=== PATIENT | female | born 1970 | race Caucasian/White ===

== ENCOUNTER 2016-09-09 20:21 | Emergency (ER) | payer MEDICAID ==
[2016-09-09] MEDS ORDERED: Ketorolac 60 MG/2 ML SDV IVPUSH ONE (21:23)
[2016-09-09] MEDS ORDERED: Tamsulosin 0.4 MG Cap.ER PO ONE (21:25)
[2016-09-09] MEDS ORDERED: Sodium Chloride 0.9% 1,000 ML IV SCH (21:30)
[2016-09-09 22:51] VITALS: BP 150/90
--- NOTE | 2016-09-09 22:55 | EDM.PDOC ---
ED HPI RENAL/ - General Chief Complaint: Flank Pain Stated Complaint: LEFT FLANK PAIN Time Seen by Provider: 09/09/16 20:56 Source: Reports: Patient History Limitations: Reports: No limitations - History of Present Illness INITIAL COMMENTS - FREE TEXT/NARRATIVE: History of present illness: [This 45-year-old female presenting with the sudden onset of left flank pain radiating into her groin. She has a prior history of a kidney stone and states this feels like the same thing. That stone had to be stented. She's had no fevers or chills or burning on urination. Some nausea no vomiting.] Review of systems: As per history of present illness and below otherwise all systems reviewed and negative. Past medical history: As per history of present illness and as reviewed below otherwise noncontributory. Surgical history: As per history of present illness and as reviewed below otherwise noncontributory. Social history: No reported history of drug or alcohol abuse. Family history: As per history of present illness and as reviewed below otherwise noncontributory. Physical exam: HEENT: Atraumatic, normocephalic, pupils reactive, negative for conjunctival pallor or scleral icterus, mucous membranes moist, throat clear, neck supple, nontender, trachea midline. Lungs: Clear to auscultation, breath sounds equal bilaterally Heart: S1S2, regular Abdomen: She has some tenderness to palpation of the left flank area bowel sounds are active Pelvis: Stable nontender. Genitourinary: Deferred. Rectal: Deferred. Extremities: Atraumatic, negative for cords or calf pain. Neurovascular unremarkable. Neuro: Awake, alert, oriented. Exam nonfocal. Diagnostics: [Abdominal pelvic CT shows a 6 mm stone at the level of the pelvic brim] Therapeutics: [She's received IV fluids and Toradol and Flomax] Impression: [Nephrolithiasis] Plan: [She will call [facility] in [place] and let them know of the fact that she has another kidney stone and get direction from them as to if they want to see her or not. And if so when. We'll provide her with pain medications in the form of Percocet and equipment for straining her urine and Flomax] Definitive disposition and diagnosis as appropriate pending reevaluation and review of above. - Related Data Allergies/ADRs: Allergies Allergy/AdvReac Type Severity Reaction Status Date / Time No Known Allergies Allergy Verified 09/09/16 21:00 Home Meds: Home Meds Lisinopril [Lisinopril] 1 tab PO DAILY 09/09/16 [History] Past Medical History Cardiovascular History: Reports: Hypertension Genitourinary History: Reports: Renal calculus [employer] History: Reports: - Past Surgical History Female Surgical History: Reports: Breast implant, Ureteral stent Social & Family History - Tobacco Use Smoking Status *Q: Light Tobacco Smoker Years of Tobacco use: 20 Packs/Tins Daily: 0.5 Used Tobacco, but Quit: No Month Tobacco Last Used: september Second Hand Smoke Exposure: No - Alcohol Use Days Per Week of Alcohol Use: 0 - Recreational Drug Use Recreational Drug Use: No ED ROS GENERAL - Review of Systems Review Of Systems: ROS reveals no pertinent complaints other than HPI. ED EXAM, RENAL/ - Physical Exam Exam: See Below Course - Vital Signs Last Recorded V/S: Last Vital Signs Temp 36.2 C 09/09/16 21:08 Pulse 89 09/09/16 21:08 Resp 18 09/09/16 21:08 BP 156/96 H 09/09/16 21:08 Pulse Ox 98 09/09/16 21:08 - Orders/Labs/Meds Orders: Active Orders 24 hr Category Date Time Status Abdomen Pelvis wo Cont [CT] Stat Exams 09/09/16 21:24 Taken Sodium Chloride 0.9% [Normal Saline] 1,000 ml Med 09/09/16 21:30 Active IV ASDIRECTED Medication Orders Sodium Chloride (Normal Saline) 1,000 mls @ 999 mls/hr IV ASDIRECTED NONI Stop: 09/13/16 21:22 Last Admin: 09/09/16 21:52 Dose: 999 mls/hr Labs: Laboratory Tests 09/09/16 09/09/16 09/09/16 Range/Units 21:00 21:35 21:35 WBC 11.7 H (4.5-11.0) K/uL RBC 5.18 (3.30-5.50) M/uL Hgb 14.5 (12.0-15.0) g/dL Hct 44.2 (36.0-48.0) % MCV 85 (80-98) fL MCH 28 (27-31) pg MCHC 33 (32-36) % Plt Count 322 (150-400) K/uL Neut % (Auto) 82 H (36-66) % Lymph % (Auto) 11 L (24-44) % Porter % (Auto) 6 (2-6) % Eos % (Auto) 0 L (2-4) % Baso % (Auto) 0 (0-1) % Sodium 138 L (140-148) mmol/L Potassium 4.2 (3.6-5.2) mmol/L Chloride 103 (100-108) mmol/L Carbon Dioxide 27 (21-32) mmol/L Anion Gap 12.2 (5.0-14.0) mmol/L BUN 18 (7-18) mg/dL Creatinine 0.9 (0.6-1.0) mg/dL Est Cr Clr Drug Dosing 66.03 mL/min Estimated GFR (MDRD) > 60 (>60) Glucose 121 H (74-106) mg/dL Calcium 8.7 (8.5-10.1) mg/dL Total Bilirubin 0.9 D (0.2-1.0) mg/dL AST 22 D (15-37) U/L ALT 31 (12-78) U/L Alkaline Phosphatase 80 (46-116) U/L Total Protein 7.3 (6.4-8.2) g/dL Albumin 3.7 (3.4-5.0) g/dL Globulin 3.6 H (2.3-3.5) g/dL Albumin/Globulin Ratio 1.0 L (1.2-2.2) Urine Color Yellow Urine Appearance Cloudy Urine pH 6.0 (4.5-8.0) Ur Specific Supply 1.020 (1.008-1.030) Urine Protein Negative (NEGATIVE) mg/dL Urine Glucose (UA) Normal (NEGATIVE) mg/dL Urine Ketones Negative (NEGATIVE) mg/dL Urine Occult Blood Large (NEGATIVE) Urine Nitrite Negative (NEGATIVE) Urine Bilirubin Negative (NEGATIVE) Urine Urobilinogen Normal (NORMAL) mg/dL Ur Leukocyte Esterase Negative (NEGATIVE) Urine RBC >100 H (0-5) Urine WBC 0-5 (0-5) Ur Epithelial Cells Few Amorphous Sediment Not seen Urine Bacteria Moderate Urine Mucus Few Meds: Medications Generic Name Dose Route Start Last Admin Trade Name Freq PRN Reason Stop Dose Admin Sodium Chloride 1,000 mls @ 999 mls/hr 09/09/16 21:30 09/09/16 21:52 Normal Saline IV 09/13/16 21:22 999 mls/hr ASDIRECTED NONI Administration Discontinued Medications Generic Name Dose Route Start Last Admin Trade Name Francia PRN Reason Stop Dose Admin Ketorolac Tromethamine 30 mg 09/09/16 21:23 09/09/16 21:50 Toradol IVPUSH 09/09/16 21:24 30 mg ONETIME ONE Administration Tamsulosin HCl 0.4 mg 09/09/16 21:25 09/09/16 21:53 Flomax PO 09/09/16 21:26 0.4 mg ONETIME ONE Administration Departure - Departure Time of Disposition: 22:55 Disposition: Home, Self-Care 01 Condition: good Clinical Impression: Nephrolithiasis Forms: ED Department Discharge Additional Instructions: As discussed straining her urine and call the urology Department at [facility] and let them know of this kidney stone and get direction from them as to what they would like you to do - My Orders Last 24 Hours: My Active Orders 09/09/16 21:24 Abdomen Pelvis wo Cont [CT] Stat 09/09/16 21:30 Sodium Chloride 0.9% [Normal Saline] 1,000 ml IV ASDIRECTED - Assessment/Plan Last 24 Hours: My Active Orders 09/09/16 21:24 Abdomen Pelvis wo Cont [CT] Stat 09/09/16 21:30 Sodium Chloride 0.9% [Normal Saline] 1,000 ml IV ASDIRECTED
== END 2016-09-09 23:07 | disposition home or self-care (01) ==
LOC: JP.ED 20:21
DX: N13.2 Hydronephrosis with renal and ureteral calculous obstruction (principal); I10 Essential (primary) hypertension; F17.210 Nicotine dependence, cigarettes, uncomplicated; Z79.899 Other long term (current) drug therapy; Z98.890 Other specified postprocedural states
CPT/HCPCS: 36415; 74176; 80053; 81001; 85025; 96361; 96374; 99284; A9270; J1885; J7040